=== PATIENT | male | born 1965 | race Caucasian/White ===

== ENCOUNTER 2024-04-22 17:54 | Emergency (ER) | payer OTHER, SELFPAY ==
[2024-04-22 17:54] VITALS: BMI 30.4
[2024-04-22 17:56] VITALS: BP 158/91
[2024-04-22 18:00] VITALS: BP 133/94
--- NOTE | 2024-04-22 18:00 | ED.PDOC.TRB ---
ED Provider Triage
-
Patient seen by provider in Triage?: Seen in Triage
Attestation: A medical screening examination has been initiated by a qualified medical provider. Based on the assessment performed at this time, it has been determined that an emergent medical condition may exist and the patient has been informed
that further medical evaluation and possible additional diagnostic testing may be needed.
HPI: 59-year-old male presents to the emergency department due to abnormal sodium on outpatient labs. He had routine labs done by his primary care physician as part of his annual physical last week that showed a sodium of 124. He had a repeat lab
done yesterday showing a repeat sodium of 121. He denies dizziness, lightheadedness, vision changes, or vomiting. He does not take any diuretics or antidepressants. Denies alcohol intake. He does note urine frequency and excessive thirst
GENERAL: Alert , in no apparent distress
EYE: No visual abnormalities.
NECK: Trachea midline
ENT: No visible abnormalities.
LUNGS: No acute respiratory distress
NEUROLOGICAL: Alert and oriented
SKIN: Skin intact. No visible changes.
MUSCULOSKELETAL: Moving extremities normally
PSYCH: Normal and appropriate interaction.
Assessment: Patient appears clinically well has no symptoms of hyponatremia at this time. Will recheck sodium level and add serum osmole as well as urine studies. Potentially will need admission if sodium is confirmed to be as low as outpatient
levels
This is a medical evaluation conducted in person to initiate diagnostic evaluation and provide initial therapeutics. Please see further documentation by the treating clinician.
[2024-04-22 18:23] LABS: Hematocrit 33.5 % (39.0-52.0); Hemoglobin 12.3 g/dL (13.0-18.0); Mean Corp Hgb Conc. 36.7 g/dL (33.0-37.0); Mean Corpuscular Hgb 29.6 pg (27.0-31.0); Mean Corpuscular Volume 80.7 fL (80.0-94.0); Mean Platelet Volume 8.8 fL (7.4-10.4); Platelet Count 318 10^3/uL (130-400); Red Blood Cell Count 4.15 10^6/uL (4.70-6.10); Red Cell Dist. Width 12.4 % (11.5-14.5); White Blood Cell Count 7.7 10^3/uL (4.8-10.8)
[2024-04-22 18:24] LABS: Urine Albumin Negative (Neg - Trace); Urine Bilirubin Negative (Negative); Urine Character Clear (Clear); Urine Color Yellow; Urine Glucose Negative (Negative); Urine Ketone Negative (Negative); Urine Leukocyte Negative (Negative); Urine Nitrite Negative (Negative); Urine Occult Blood 1+ (Negative); Urine Urobilinogen Negative (Neg - 1+)
[2024-04-22 18:27] LABS: Osmolality Urine 667 mOsm/kg (300-900)
[2024-04-22 18:31] LABS: Urine Mucus Moderate
[2024-04-22 18:32] LABS: Urine Bacteria Moderate (Negative); Urine White Cell 0-2 /HPF (0-5)
[2024-04-22 18:35] LABS: Osmolality Serum 261 mOsm/kg (275-300)
[2024-04-22 18:40] LABS: Urine Sodium 102 mmol/L (30-90)
[2024-04-22 18:44] LABS: ALT (SGPT) 28 U/L (0-50); AST (SGOT) 35 U/L (17-59); Albumin 4.8 g/dl (3.5-5.0); Alkaline Phosphatase 63 U/L (38-126); Blood Urea Nitrogen 11 mg/dl (9-20); Calcium 9.7 mg/dl (8.4-10.2); Carbon Dioxide 26 mmol/L (22-30); Chloride 89 mmol/L (98-107); Glucose 105 mg/dl (70-99); Potassium 4.6 mmol/L (3.5-5.1); Sodium 128 mmol/L (135-145); Total Bilirubin 0.3 mg/dl (0.2-1.3); Total Protein 7.3 g/dl (6.3-8.2); eGFR > 60.00
--- NOTE | 2024-04-22 20:50 | ED.GENMED ---
History of Present Illness
General
Chief Complaint: Abnormal Lab Value
Source: patient
Exam Limitations: none
Time Seen by Provider: 04/22/24 19:30
History of Present Illness
History of Present Illness:
Patient is a 59-year male with past medical history of hypertension, hyperlipidemia, BPH, anxiety, chronic back pain, who presents to the emergency department at the recommendation of his PCP for a low sodium level. Patient reports that he had
routine outpatient labs performed and his sodium was initially 124. Patient reports that he then had it rechecked yesterday and it was lower at 121. Patient received a phone call from his primary doctor today that he should come to the emergency
department for further evaluation. Patient denies any history of low sodium in the past. Patient admits that he has had increased thirst and increased urination over the past several weeks. Patient denies any headache, dizziness, confusion, chest
pain, palpitations, shortness of breath, abdominal pain, nausea, vomiting, dysuria, hematuria, change in his bowel habits.
Review of Systems
Review of Systems
All Other Systems: Not applicable
Constitutional: Reports no symptoms
EENT: Reports no symptoms
Respiratory: Reports no symptoms
Cardiac: Reports no symptoms
ABD/GI: Reports no symptoms
: Reports no symptoms
Musculoskeletal: Reports no symptoms
Skin: Reports no symptoms
Neurological: Reports no symptoms
Endocrine: Reports polyuria and polydipsia
Hematologic/Lymphatic: Reports no symptoms
Psychiatric: Reports no symptoms
Phy Exam
General Physical Exam
General Presentation: well appearing and no apparent distress
General Skin: warm and dry
General Habitus: normal
General Mental: alert
General Hydration: appears well hydrated
ENT Exam
ENT Exam: EOMI, pharynx normal, neck supple and normocephalic
Eye Exam
Eye Exam: PERRL, cornea clear and conjunctiva normal
Cardiovascular Exam
Cardiovascular Exam: regular rate/rhythm, no edema, no murmur and normal peripheral pulses
Pulmonary Exam
Pulmonary Exam: lungs clear, no respiratory distress, no rales, no crackles, no rhonchi, no stridor, no wheezing and no cough
Gastrointestinal Exam
Gastrointestinal Exam: normal bowel sounds, non tender, soft, no organomegaly, no pulsatile mass and non distended
Neurological Exam
Neurological Exam: alert, oriented x3, no motor deficits and speech normal
Musculoskeletal Exam
Musculoskeletal Exam: full ROM and no edema
Skin Exam
Skin Exam: normal color, warm/dry, no rash and no petechia
Psychiatric Exam
Psychiatric Exam: normal mood/affect
Course
Orders/Labs/Results
Orders:
Orders
04/22/24 18:17
Complete Blood Count/No Diff Urgent
Comprehensive Metabolic Panel Urgent
Osmolality, Random Urine Urgent
Date Specimen was Collected: 04/22/24
Time Specimen was Collected: 18:04
Serum Osmolality Urgent
Urinalysis Reflex To Culture Urgent
Date Specimen was Collected: 04/22/24
Time Specimen was Collected: 18:04
Urine Microscopic Reflex Cult Urgent
Urine Sodium Urgent
Date Specimen was Collected: 04/22/24
Time Specimen was Collected: 18:04
Urine Culture Urgent
AISSATOU Source: U
Specimen Description:
Date Specimen was Collected: 04/22/24
Time Specimen was Collected: 18:04
Abnormal Lab Results
04/22/24
18:17
RBC 4.15 L 10^6/uL
(4.70-6.10)
Hgb 12.3 L g/dL
(13.0-18.0)
Hct 33.5 L %
(39.0-52.0)
Sodium 128 L mmol/L
(135-145)
Chloride 89 L mmol/L
(98-107)
Glucose 105 H mg/dl
(70-99)
Serum Osmolality 261 L mOsm/kg
(275-300)
Ur Occult Blood Reflex 1+ A
(Negative)
Urine RBC 7-10 A /HPF
(0-2)
Urine Bacteria (Reflex) Moderate A
(Negative)
Urine Sodium 102 H mmol/L
(30-90)
04/22/24 18:17
04/22/24 18:17
Vital Signs
Initial and Last Documented VS:
Initial Vital Signs
Temp Pulse Resp BP Pulse Ox
98.3 F 62 20 158/91 98
04/22/24 17:56 04/22/24 17:56 04/22/24 17:56 04/22/24 17:56 04/22/24 17:56
Last Documented Vital Signs
Temp Pulse Resp BP Pulse Ox
98.3 F 61 22 133/94 98
04/22/24 17:56 04/22/24 18:00 04/22/24 18:00 04/22/24 18:00 04/22/24 18:00
*Critical Care Note
Total Time (30-74mins, 75-104mins- exclusive of procedures): Not Applicable
Update Note
Update Note:
59-year-old male presents for hyponatremia on outpatient labs. Patient does endorse increased thirst and increased urination lately but denies any additional symptoms. On arrival, patient is moderately hypertensive but is anxious, afebrile. On
exam, patient is well-appearing, he is in no acute distress, he is neurologically intact. Sodium here today is 128. The remainder the patient's labs are as noted. Case was discussed with Dr. Baird of nephrology. He states that the pt can be
discharged to home with fluid restriction to 40oz daily, can consider a diuretic as well, along with close outpatient follow-up with PCP and nephrology, vs admit to the hospital for further evaluation and treatment. I discussed these
recommendations with the patient who is anxious for discharge to home. He states that he will restrict his fluid intake to 40 ounces a day. He is aware that he needs to follow-up closely with his PCP as well as nephrology for definitive diagnosis
and treatment. Patient was provided with strict turn precautions, he expressed understanding of the plan and agreed.
ED Attending Note
-
Portions of this chart may have been created with voice recognition software.� Occasional wrong word or��sound alike� substitutions may have occurred due to the inherent limitations of voice recognition software.
Discharge Plan
Departure
Patient Disposition: Home (Routine Discharge)
Date of Disposition: 04/22/24
Time of Disposition: 21:13
Patient with high blood pressure during this ER visit?: Yes
Condition: Good
Covid-19: Not Applicable
Discharge Problem:
Hyponatremia
Instructions: Hyponatremia
Referrals:
Jay Leal MD [Family Provider] - Tomorrow
Juan M Baird MD [Active] - Follow up in 5-7 days (Call for follow-up appointment)
Activity Restrictions/Additional Instructions:
You were seen in the emergency department for evaluation of low sodium levels. While you were in the emergency department your sodium was 128 which is low but not dangerously low. We discussed your case with nephrology and feel that it is safe for
you to be discharged home. You must restrict your fluid intake to 40 ounces a day. It is extremely importantly to follow-up with both your primary care provider as well as nephrology for further evaluation and treatment. Please return to the
emergency department if develop dizziness, if you pass out or feel you are going to pass out, if you are confused, if you have chest pain, shortness of breath, persistent vomiting, or for the worsening concerning symptoms.
Interventions
Interventions:
*Risk Screen - Suicide Last Done: 04/22/24 17:56
*General Assessment Last Done: 04/22/24 17:56
*Neglect/Abuse Screening Last Done: 04/22/24 17:56
Discharge Date and Time
Print Language: PAKISTANI
== END 2024-04-22 21:19 | disposition home or self-care (01) ==
LOC: EMR 17:54
PROVIDERS: Physician Assistant; EMERGENCY PHYSICIAN Emergency Medicine; FAMILY PHYSICIAN Family Medicine
DX: E87.1 Hypo-osmolality and hyponatremia (principal); I10 Essential (primary) hypertension; N40.1 Benign prostatic hyperplasia with lower urinary tract symptoms; R35.89 Other polyuria; R63.1 Polydipsia; E78.5 Hyperlipidemia, unspecified; M54.9 Dorsalgia, unspecified; G89.29 Other chronic pain
CPT/HCPCS: 99283; 80053; 81003; 81015; 83930; 83935; 84300; 85027; 87086